=== PATIENT | male | born 1995 | race Caucasian/White ===

== ENCOUNTER 2022-08-06 22:40 | Emergency (ER) | payer SELFPAY ==
[2022-08-06 22:42] VITALS: BP 117/65; PULSE 70; RESP 12; TEMP 36.6; O2SAT 100
== END 2022-08-07 01:07 | disposition left against medical advice (07) ==
LOC: ANHED 08-07 00:39
DX: T15.91XA Foreign body on external eye, part unspecified, right eye, initial encounter (principal)
CPT/HCPCS: 99199